=== PATIENT | male | born 1955 | race African-American/Black ===

== ENCOUNTER 2016-10-08 14:56 | Emergency (ER) | payer OTHER ==
[2016-10-08 16:06] VITALS: BP 131/79
--- NOTE | 2016-10-08 16:17 | UC ---
Shoulder Pain HPI - HPI Summary HPI Summary: HAS HAD RIGHT SHOULDER PAIN FOR ABOUT 1 MONTH. DOES A LOT OF HEAVY LIFTING AT WORK AND ALSO HAS BEEN HELPING PEOPLE MOVE RECENTLY. DENIES ANY TRAUMA OR FALL. NO NUMBNESS OR TINGLING. - History of Current Complaint Chief Complaint: UCUpperExtremity Stated Complaint: SHOULDER PAIN Time Seen by Provider: 10/08/16 16:02 Hx Obtained From: Patient Onset/Duration: Gradual Onset, Lasting Weeks, Still Present Timing: Constant Severity Initially: Mild Severity Currently: Moderate Pain Intensity: 4 Pain Scale Used: 0-10 Numeric Character: Dull, Aching Aggravating Factor(s): Movement Alleviating Factor(s): Rest Associated Signs And Symptoms: Positive: Negative Related History: Dominant Hand Right - Allergies/Home Medications Allergies/Adverse Reactions: Allergies Allergy/AdvReac Type Severity Reaction Status Date / Time No Known Allergies Allergy Verified 10/08/16 16:01 PMH/Surg Hx/FS Hx/Imm Hx Previously Healthy: Yes - Surgical History Surgical History: None - Family History Known Family History: Positive: Hypertension - Social History Alcohol Use: Occasionally Substance Use Type: None Smoking Status (MU): Light Every Day Tobacco Smoker Type: Cigars - Immunization History Most Recent Influenza Vaccination: none Review of Systems Constitutional: Negative Skin: Negative Respiratory: Negative Cardiovascular: Negative Gastrointestinal: Negative Musculoskeletal: Arthralgia, Myalgia All Other Systems Reviewed And Are Negative: Yes Physical Exam Triage Information Reviewed: Yes Appearance: Well-Appearing, No Pain Distress, Well-Nourished Vital Signs: Initial Vital Signs Temp 98.7 F 10/08/16 16:02 Pulse 66 10/08/16 16:02 Resp 16 10/08/16 16:02 BP 131/79 10/08/16 16:02 Pulse Ox 99 10/08/16 16:02 Vital Signs Reviewed: Yes Eyes: Positive: Conjunctiva Clear ENT: Positive: Hearing grossly normal Neck: Positive: Supple Respiratory: Positive: No respiratory distress, No accessory muscle use Cardiovascular: Positive: Pulses Normal Abdomen Description: Positive: Soft Musculoskeletal: Positive: ROM Intact, No Edema, Other: - TTP BICEPS TENDON. POSITIVE YERGASON. MILDLY TENDER OVER TRICEP AND DELTOID WELL. Neurological: Positive: Alert Psychological: Positive: Age Appropriate Behavior Skin: Negative: rashes Shoulder Course/Dx - Differential Dx/Diagnosis Differential Diagnosis/HQI/PQRI: Bursitis, Fracture (Closed), Sprain Provider Diagnoses: RIGHT SHOULDER PAIN/BICEPS TENDONITIS Discharge - Discharge Plan Condition: Stable Disposition: HOME Prescriptions: Cyclobenzaprine TAB* [Flexeril TAB*] 10 mg PO BID PRN #30 tab PRN Reason: Pain Naproxen [Naproxen EC] 500 mg PO BID PRN #30 tab PRN Reason: Pain Patient Education Materials: Shoulder Pain (ED) Referrals: Selvin Love MD [Medical Doctor] - If Needed () Additional Instructions: REST, SLING NEEDED FOR COMFORT. NAPROXEN AND FLEXERIL NEEDED. AVOID HEAVY LIFTING ABLE. IF WHAT YOU ARE DOING IS CAUSING PAIN THEN YOU SHOULD NOT BE DOING IT. FOLLOW-UP WITH ORTHO IF YOU DO NOT IMPROVE EXPECTED OVER THE NEXT SEVERAL WEEKS WITH DEDICATED REST. CALL THE NUMBER BELOW FOR ASSISTANCE IN ESTABLISHING WITH A PCP An additional resource available to assist in finding the appropriate physician for your health care needs is the [facility] (Vangie Kimble). You may contact them by calling [phone].
== END 2016-10-08 16:45 | disposition home or self-care (01) ==
LOC: UCEAST 14:56
DX: M25.511 Pain in right shoulder (principal); M75.21 Bicipital tendinitis, right shoulder; F17.290 Nicotine dependence, other tobacco product, uncomplicated
CPT/HCPCS: 99213; G0463

== ENCOUNTER 2017-11-12 12:14 | Emergency (ER) | payer OTHER ==
[2017-11-12 12:46] VITALS: BP 121/80
--- NOTE | 2017-11-12 13:07 | UC ---
Shoulder Pain HPI - HPI Summary HPI Summary: Patient presents to urgent care with complaint of ongoing right shoulder pain. Patient states he's had the pain for approximately 2 months. Patient does a lot of repetitive movement at work which makes it worse. Patient was evaluated at urgent care for the same approximately one month ago. Patient was given a prescription for Flexeril and naproxen. Patient was given a sling and instructed to follow-up with orthopedics. Patient states he did not use his sling or follow-up. Patient states he is here because of continued pain. no new injury. no analgesia taken Patient denies paresthesias. Patient denies weakness of his arm. Patient is right-hand dominant. Patient denies weakness in his hand. Patient had no other complaints. RHD Patient medications reviewed this visit - History of Current Complaint Chief Complaint: UCUpperExtremity Stated Complaint: SHOULDER PAIN Time Seen by Provider: 11/12/17 12:53 Hx Obtained From: Patient Onset/Duration: Gradual Onset Timing: Intermittent Episode Lasting - with activity Severity Initially: Moderate Severity Currently: Moderate Location Of Pain: Is Discrete @ - right anterior shoulder Pain Intensity: 8 Character: Sharp Aggravating Factor(s): Movement, Extension Alleviating Factor(s): Rest Associated Signs And Symptoms: Positive: Negative - Allergies/Home Medications Allergies/Adverse Reactions: Allergies Allergy/AdvReac Type Severity Reaction Status Date / Time No Known Allergies Allergy Verified 11/12/17 12:46 Home Medications: Home Medications NK [No Home Medications Reported] 11/12/17 [History Confirmed 11/12/17] PMH/Surg Hx/FS Hx/Imm Hx Previously Healthy: Yes Cardiovascular History: Hypertension - Surgical History Surgical History: None Surgery Procedure, Year, and Place: denies - Family History Known Family History: Positive: Hypertension - Social History Occupation: Employed Full-time Lives: With Family Alcohol Use: Occasionally Substance Use Type: None Smoking Status (MU): Light Every Day Tobacco Smoker Type: Cigars - Immunization History Most Recent Influenza Vaccination: none Most Recent Tetanus Shot: UNK Review of Systems Constitutional: Negative Skin: Negative Musculoskeletal: Other: - right shoulder All Other Systems Reviewed And Are Negative: Yes Physical Exam - Summary Physical Exam Summary: Vital Signs Reviewed: Yes Eye Exam: Normal Eyes: Positive: Conjunctiva Clear ENT Exam: Normal ENT: Positive: Normal ENT inspection, Hearing grossly normal, TMs normal Neck exam: Normal Neck: Positive: Supple Respiratory Exam: Normal Respiratory: Positive: Lungs clear, Normal breath sounds, No respiratory distress, No accessory muscle use Cardiovascular Exam: Normal Cardiovascular: Positive: RRR, No Murmur Abdominal Exam: Normal Abdomen Description: Positive: Nontender, No Organomegaly, Soft. Negative: CVA Tenderness (R), CVA Tenderness (L), Distended, Guarding Bowel Sounds: Positive: Present Musculoskeletal Exam: + right anterior shoulder TTP along anterior cuff + full extension, flexion, abduction with full strength tenderness anterior shoulder with resistance against ROM + flex/ext elbow, + pronate/supinate + flex/ext wrist Musculoskeletal: Positive: Strength Intact Neurological Exam: Normal + thumb up, a ok, finger cross, finger spread Neurological: Positive: Alert Psychological Exam: Normal Psychological: Positive: Normal Response To Family Skin Exam: Normal Triage Information Reviewed: Yes Vital Signs: Initial Vital Signs Temp 98.2 F 11/12/17 12:43 Pulse 68 11/12/17 12:43 Resp 18 11/12/17 12:43 BP 121/80 11/12/17 12:43 Pulse Ox 99 11/12/17 12:43 Diagnostics - Radiology No standard instances Radiology Interpretation Completed By: Radiologist - Patient Name: TROY PASCUAL Medical Record#: [id number] Ordering Physician: Janet Kimble MD Acct.#: [id number] : 1955 Age: 62 Sex: M Location: [facility] Exam Date: 11/12/17 1313 ADM Status: REG ER Order Information: SHOULDER RIGHT 2+ VWS Accession Number: [id number] CPT: 53836 INDICATION: Right shoulder pain. TECHNIQUE: 4 views of the right shoulder were obtained. FINDINGS: The bones are in normal alignment. No fracture is seen. There is mild to moderate osteoarthritic change in the glenohumeral and acromioclavicular joints. IMPRESSION: MILD TO MODERATE OSTEOARTHRITIC CHANGE. <Electronically signed by Giancarlo Xavier MD in OV> 05/30/18 1328 Dictated By: Giancarlo Xavier MD Dictated Date/Time: 1327 Transcribed Date/Time: 11/12/171326 Copy to: CC:Janet Kimble MD; No Primary Care Phys,NOPCP Imaging - [facility] - [facility] Imaging - [facility] [address] [address] ph [phone]) ph ([phone]) ph ([phone]) 1 of 1 Shoulder Course/Dx - Course Course Of Treatment: right anterior shoulder pain with rom and direct palp. full ROM 'CSM intact. suspect repetitive injury to rotator cuff. refer to ortho. motrin/apap. heat. stretch. rom exercises. pt in agreement with plan - Differential Dx/Diagnosis Provider Diagnoses: shoulder strain Discharge - Sign-Out/Discharge Documenting (check all that apply): Discharge/Admit/Transfer - Discharge Plan Condition: Stable Disposition: HOME Patient Education Materials: Rotator Cuff Tendinitis (ED) Referrals: [facility] [Outside] Mira Odell MD [Medical Doctor] - Additional Instructions: - Okay to take Naproxyn and Tylenol every for pain. Take with food. Do NOT take for more than 4-5 days - apply heat to your shoulder- once warm, slow, gentle stretching exercises - contact the orthopedic provider to schedule a follow-up appointment - contact the physician referral center to establish with a primary care provider - Billing Disposition and Condition Condition: STABLE Disposition: HOME
--- NOTE | 2017-11-12 13:32 | RAD ---
INDICATION: Right shoulder pain. TECHNIQUE: 4 views of the right shoulder were obtained. FINDINGS: The bones are in normal alignment. No fracture is seen. There is mild to moderate osteoarthritic change in the glenohumeral and acromioclavicular joints. IMPRESSION: MILD TO MODERATE OSTEOARTHRITIC CHANGE.
== END 2017-11-12 14:13 | disposition home or self-care (01) ==
LOC: UCEAST 12:14
DX: M75.101 Unspecified rotator cuff tear or rupture of right shoulder, not specified as traumatic (principal); Z82.49 Family history of ischemic heart disease and other diseases of the circulatory system; F17.290 Nicotine dependence, other tobacco product, uncomplicated
CPT/HCPCS: 99211; G0463